=== PATIENT | male | born 1955 | race African-American/Black ===

== ENCOUNTER 2021-08-26 12:01 | Emergency (ER) | payer OTHER ==
[~2021-08-26] VITALS: Ht 185.4 cm; Wt 89.0 kg
[~2021-08-26 12:01] MED LIST: AMLO10TA4 PO; ASPI-1497 PO; COR6 PO; FLONAS NS; INSLAN SUBCUT; LISI40TA13 PO; METF-414 PO; NPH,100V11 SUBCUT; PROT40 PO; SIMV-43 PO
[2021-08-26 12:04] VITALS: BP 134/89
[2021-08-26 12:43] LABS: CHLORIDE 109 mEq/L (98-107)
[2021-08-26 12:46] LABS: HEMATOCRIT. 31.2 % (42.0-52.0); MEAN CORPUSCULAR HEMOGLOBIN 26.7 pg (28.0-32.0); MEAN CORPUSCULAR VOLUME 83.1 fL (80.0-94.0); MEAN PLATELET VOLUME 8.8 fl (7.4-10.4); PLATELET 399 x1000/uL (130-400); RED BLOOD CELL COUNT 3.75 mill/uL (4.7-6.1); RED CELL DISTRIBUTION WIDTH 13.7 % (11.6-14.6)
[2021-08-26 13:41] LABS: PLATELET ESTIMATE NORMAL
[2021-08-26] MEDS ORDERED: PIPERACILLIN/TAZ 3.375G PREMIX 50 ML IV ONE (13:45)
[2021-08-26] MEDS ORDERED: VANCOMYCIN 1G PREMIX 200 ML IV SCH (13:45)
[2021-08-26 14:23] LABS: CLARITY URINE CLEAR (CLEAR); COLOR URINE YELLOW (YELLOW); KETONES URINE NEGATIVE (NEGATIVE); LEUKOCYTE ESTERASE URINE NEGATIVE (NEGATIVE); NITRITE URINE NEGATIVE (NEGATIVE); OCCULT BLOOD URINE NEGATIVE (NEGATIVE); PH URINE 6.5 (4.5-8.0); PROTEIN URINE 2+ (NEGATIVE); SPECIFIC GRAVITY URINE 1.007 (1.005-1.030); UROBILINOGEN URINE 0.2 E.U./dL (0.2-1.0)
[2021-08-26] MEDS ORDERED: DIPHENHYDRAMINE 50MG/ML VIAL IV ONE (16:30)
== END 2021-08-26 16:47 | disposition left against medical advice (07) ==
LOC: ER 12:12
DX: M79.671 Pain in right foot (principal); E11.9 Type 2 diabetes mellitus without complications; I10 Essential (primary) hypertension; Z98.890 Other specified postprocedural states; Z87.891 Personal history of nicotine dependence
CPT/HCPCS: 36415; 73630; 80053; 81003; 85025; 85651; 86140; 87040; 96365; 96375; 99284; J1200; J2543; J3370; Z7610